=== PATIENT | male | born 1970 | race Caucasian/White ===

== ENCOUNTER 2016-11-21 16:25 | Emergency (ER) | payer MEDICAID, OTHER ==
[~2016-11-21 16:25] MED LIST: 1-ME1LIQ PO; ALBU17I INH; BACL10TA PO; FLUN25I; FLUT1SPR9 NASAL; IPRA.5I NEB; IPRAAER IN; LEVE750T8 PO; NITR0.4S SL; PROC1TAB8 PO; REME15TA PO; SUCR1S PO
[2016-11-21 16:26] VITALS: BP 179/105; PULSE 116; RESP 14; TEMP 97.6; O2SAT 91
[2016-11-21] MEDS ORDERED: levETIRAcetam 250 MG TAB PO ONE (22:45)
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
--- NOTE | 2016-11-21 23:41 | RADRPT ---
EXAM DATE/TIME: 11/21/2016 23:01 [facility] COMPARISON: CHEST SINGLE AP, February 17, 2015, 18:47. INDICATIONS : Short of breath. MEDICAL HISTORY : None. SURGICAL HISTORY : None. ENCOUNTER: Initial ACUITY: 1 day PAIN SCORE: 0/10 LOCATION: Bilateral chest FINDINGS: A single view of the chest demonstrates the lungs to be symmetrically aerated without evidence of mas s, infiltrate or effusion. The cardiomediastinal contours are unremarkable. Osseous structures are intact. CONCLUSION: 1. No acute cardiopulmonary disease. Anders King MD on November 21, 2016 at 23:39 Board Certified Radiologist. This report was verified electronically.
[2016-11-21 23:48] LABS: BASOPHIL % 0.3 % (0.0-2.0); EOSINOPHIL # 0.2 TH/MM3 (0-0.4); EOSINOPHIL % 1.4 % (0.0-4.0); HEMATOCRIT 49.4 % (39.0-51.0); HEMO FLAGS DIFF FINAL; LYMPH % 17.8 % (9.0-44.0); LYMPHOCYTE # 2.2 TH/MM3 (1.0-4.8); MEAN CELL VOLUME 87.7 FL (80.0-100.0); MEAN CORPUSCULAR HEMOGLOBIN 29.7 PG (27.0-34.0); MEAN CORPUSCULAR HGB CONC 33.8 % (32.0-36.0); MONO % 8.5 % (0.0-8.0); PLATELET COUNT 178 TH/MM3 (150-450); RED BLOOD COUNT 5.63 MIL/MM3 (4.50-5.90); RED CELL DISTRIBUTION WIDTH 13.8 % (11.6-17.2); WHITE BLOOD COUNT 12.5 TH/MM3 (4.0-11.0)
[2016-11-22 00:09] LABS: BLOOD, URINE MOD (NEG); COMMENT (UR) CULTURE INDICATED; CULTURE IF INDICATED CULTURE INDICATED; GLUCOSE,URINE NEG (NEG); KETONE, URINE 10 mg/dL (NEG); MUCUS URINE MANY /lpf (OCC); NITRITE,URINE NEG (NEG); SQUAMOUS EPITHELIAL CELL URINE 1 /hpf (0-5); URINE COLOR YELLOW (YELLW/STRAW)
[2016-11-22 00:17] LABS: APTT (PATIENT) 29.2 SEC (24.3-30.1); PROTHROMBIN TIME - PATIENT 10.8 SEC (9.8-11.6)
[2016-11-22 00:19] LABS: ANION GAP 8 MEQ/L (5-15); BLOOD UREA NITROGEN 11 MG/DL (7-18); CHLORIDE 104 MEQ/L (98-107); GLOMERULAR FILTRATION RATE 78 ML/MIN (>89); POTASSIUM 3.7 MEQ/L (3.5-5.1); SODIUM (NA) 139 MEQ/L (136-145)
[2016-11-22] MEDS ORDERED: MORPHINE SULFATE 4 MG/ML INJ IV PUSH ONE (00:45)
[2016-11-22] MEDS ORDERED: cefTRIAXone INJ 1,000 MG in SODIUM CHLORIDE 0.9% INJ 100 ML IV ONE (00:45)
[2016-11-22] MEDS ORDERED: ONDANSETRON HCL 4 MG/2 ML VIAL IV PUSH ONE ×2 (00:45→04:00)
[2016-11-22] MEDS ORDERED: ACET500T36 PO (00:46)
[2016-11-22] MEDS ORDERED: ERYTOIN10 RIGHT EYE (00:46)
[2016-11-22] MEDS ORDERED: IOHEXOL 350 MG/ML 10 ML VIAL (for RAD DIAG) IV ONE (00:59)
[2016-11-22] MEDS ORDERED: TETANUS/DIPHTHERIA TOXOID ADULT 0.5 ML VIAL IM ONE (01:00)
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
--- NOTE | 2016-11-22 01:20 | RADRPT ---
EXAM DATE/TIME: 11/22/2016 00:56 [facility] COMPARISON: CT ABDOMEN & PELVIS W CONTRAST, May 30, 2015, 21:42. INDICATIONS : Abdomen pain with hematuria. Cystoscopy 2 days. IV CONTRAST: 94 cc Omnipaque 350 (iohexol) IV ORAL CONTRAST: No oral contrast ingested. RADIATION DOSE: 11.75 CTDIvol (mGy) MEDICAL HISTORY : Cardiovascular disease. Hypertension. Renal calculi. SURGICAL HISTORY : Cholecystectomy. Renal Stent ENCOUNTER: Initial ACUITY: 1 day PAIN SCALE: 7/10 LOCATION: Bilateral abdomen TECHNIQUE: Volumetric scanning of the abdomen and pelvis was performed. Using automated exposure control and ad justment of the mA and/or kV according to patient size, radiation dose was kept as low as reasonably achievable to obtain optimal diagnostic quality images. FINDINGS: Examination of the lung bases demonstrates no abnormality. No pleural fluid is identified. No pulmona ry nodules are present. A small hiatal hernia is present. The liver and spleen are normal in size and no focal defects are identified. The gallbladder is absent. The pancreas demonstrates normal contour without evidence of mass or ductal dilatation. The adrenal glands are unremarkable. The left kidney is unremarkable. A double-J stent is present on the right in the expected position. There are multipl e right renal stones the largest measuring 2 cm in the right renal pelvis. There also small stones al kelle the course of the distal ureter the largest measuring 5 mm. Examination of the pelvis demonstrates no evidence of free fluid or pelvic mass. No abnormally enlarg ed inguinal or retroperitoneal lymph nodes are present. The bladder is unremarkable. The prostate gla nd is moderately enlarged impinging on the bladder base. CONCLUSION: 1. No evidence of acute abdominal or pelvic process. No masses are identified. 2. Double-J stent in expected position with multiple right renal stones 3. A small hiatal hernia is present. Anders King MD on November 22, 2016 at 1:15 Board Certified Radiologist. This report was verified electronically.
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
[2016-11-22 04:02] VITALS: BP 140/66; PULSE 88; RESP 20; O2SAT 98
[2016-11-22 04:03] VITALS: BP 142/72
== END 2016-11-22 04:30 | disposition home or self-care (01) ==
LOC: NEPA 16:25
DX: S00.211A Abrasion of right eyelid and periocular area, initial encounter (principal); H11.31 Conjunctival hemorrhage, right eye; R31.9 Hematuria, unspecified; G40.909 Epilepsy, unspecified, not intractable, without status epilepticus; I25.10 Atherosclerotic heart disease of native coronary artery without angina pectoris; I10 Essential (primary) hypertension; F17.200 Nicotine dependence, unspecified, uncomplicated; Y09 Assault by unspecified means; Z23 Encounter for immunization
CPT/HCPCS: 70450; 70486; 71010; 73120; 74177; 80048; 80320; 81001; 85025; 85610; 85730; 86850; 86900; 86901; 87086; 90471; 90714; 96365; 96375; 96376; 99284; J0696; J2270; J2405; Q9967